=== PATIENT | male | born 1995 | race American Indian/Alaskan Native ===

== ENCOUNTER 2017-10-25 09:36 | Emergency (ER) | payer SELFPAY ==
[2017-10-25 09:56] VITALS: BP 92/74
== END 2017-10-25 10:00 | disposition left against medical advice (07) ==
LOC: ED 09:36
DX: R06.02 Shortness of breath (principal); Z53.21 Procedure and treatment not carried out due to patient leaving prior to being seen by health care provider

== ENCOUNTER 2018-03-03 19:04 | Emergency (ER) | payer SELFPAY | END 2018-03-03 19:56 | disposition left against medical advice (07) | LOC: ED 19:04 | DX: R21 Rash and other nonspecific skin eruption (principal); Z53.21 Procedure and treatment not carried out due to patient leaving prior to being seen by health care provider ==